=== PATIENT | male | born 1955 | race Two or more races ===

== ENCOUNTER 2025-01-25 14:16 | Emergency (ER) | payer MEDICARE, MEDICAID, SELFPAY ==
[2025-01-25 14:19] VITALS: BMI 26.6
[2025-01-25 14:27] VITALS: BP 159/88; PULSE 68; RESP 17; TEMP 37; O2SAT 97
--- NOTE | 2025-01-25 14:48 | XR_ITS ---
Examination: CT brain head without contrast. 2-D sagittal coronal reconstructions Date and time of exam:January 25, 2025 1529 hours INDICATIONS: Patient fell today with injury of the head, headache CTDI: vol (mGy):9.53 DLP: (mGycm):368 Technique: Multiple CT axial sections of the brain have been obtained, 5 mm slice thickness. Contrast has not been administered. 2-D sagittal, coronal reconstructions have been obtained Low dose protocols were performed. One or more of the following dose reduction techniques were used; automated exposure control, adjustment of the mA and/or KV according to patient size, use of iterative reconstruction technique. Findings: No significant ventricular enlargement. Intra-axial or extra-axial hemorrhage density is not seen. No mass effect or midline shift Basal cisterns are not remarkable. Fourth ventricle is midline. Cranial vault intact. Impression: Negative for acute hemorrhage, mass effect or midline shift
--- NOTE | 2025-01-25 14:56 | PD.EDHA ---
ED Headache RME/HPI General Chief Complaint: Headache Stated Complaint: HEAD PAIN, SWEATING, X2WKS, HX OF STROKE Time Seen by Provider: 01/25/25 14:27 Source: patient Arrival date/time: 01/25/25 14:16 69-year-old male with a history of hypertension, hyperlipidemia, CVA presents to the emergency room with a chief complaint of a headache, neck pain x 10 days Mode of arrival: ambulatory Limitations: no limitations Related Data Home Medications ?Medication ?Instructions ?Recorded ?Confirmed gabapentin 300 mg capsule 300 mg PO TID 04/21/20 05/28/20 apixaban 5 mg tablet (Eliquis) 5 mg PO BID 05/28/20 05/28/20 carvedilol 3.125 mg tablet 3.125 mg PO BID 05/28/20 05/28/20 Previous Rx's ?Medication ?Instructions ?Recorded atorvastatin 40 mg tablet 40 mg PO QDAY #30 tabs 05/29/20 lisinopril 40 mg tablet 20 mg (1/2 x 40 mg) PO QDAY #0 tabs 05/29/20 ondansetron HCl 4 mg tablet 4 mg PO Q8H PRN nausea and 05/29/20 (Zofran) vomiting #20 tabs Allergies Allergy/AdvReac Type Severity Reaction Status Date / Time No Known Allergies Allergy Verified 01/25/25 14:21 Review of Systems Review of Systems Systems Reviewed: All systems reviewed, normal except as documented Constitutional Constitutional: Reports system reviewed and no additional complaints, except as documented, Denies fatigue, Denies fever(s), Reports headache(s), Reports lethargy, Reports night sweats, Reports weakness and Reports weight loss Eyes Eyes: Reports system reviewed and no additional complaints, except as documented, Denies blurry vision and Denies change in vision ENT Ears, Nose, Mouth, and Throat: Reports system reviewed and no additional complaints, except as documented, Denies otalgia, Reports headache(s), Denies nasal congestion, Denies throat swelling and Denies vertigo Cardiovascular Cardiovascular: Reports system reviewed and no additional complaints, except as documented, Denies chest pain, Denies dyspnea and Denies dyspnea on exertion Respiratory Respiratory: Reports system reviewed and no additional complaints, except as documented, Denies chest congestion, Denies cough, Denies dyspnea, Denies dyspnea on exertion and Denies wheezing Gastrointestinal Gastrointestinal: Reports system reviewed and no additional complaints, except as documented, Denies abdominal pain, Denies cramping, Denies nausea and Denies vomiting Genitourinary Genitourinary: Reports system reviewed and no additional complaints, except as documented, Denies dysuria and Denies hematuria Musculoskeletal Musculoskeletal: Reports system reviewed and no additional complaints, except as documented and Denies back pain Integumentary/Breasts Skin/Breast: Reports system reviewed and no additional complaints, except as documented and Denies wounds Neurologic Neurologic: Reports system reviewed and no additional complaints, except as documented, Denies confusion, Reports headache(s), Denies lack of coordination, Denies vertigo and Reports weakness Psychiatric Psychiatric: Reports system reviewed and no additional complaints, except as documented, Denies anxiety, Denies confusion, Denies depression, Denies paranoia, Denies suicidal ideation and Denies tactile hallucinations Endocrine Endocrine: Reports system reviewed and no additional complaints, except as documented and Denies fatigue Hematologic/Lymphatic Hematologic/Lymphatic: Reports system reviewed and no additional complaints, except as documented and Denies lymphadenopathy Allergic/Immunologic Allergic/Immunologic: Reports system reviewed and no additional complaints, except as documented, Denies throat swelling, Denies urticaria and Denies wheezing Past Medical History Past Medical History NEUROLOGIC: Positive Neurological Disorders and Cerebrovascular Accident CARDIAC: Positive Cardiac Disorders, Hypercholesterolemia and Hypertension; Negative Congestive Heart Failure RESPIRATORY: Negative Chronic Obstructive Pulmonary Disease (COPD) or Asthma GASTROINTESTINAL: Negative Gastrointestinal Disorders GENITOURINARY: Negative Genitourinary Disorders or Renal Disease MUSCULOSKELETAL: Negative Musculoskeletal Disorders ENDOCRINE: Negative Diabetes Mellitus Type 1 or Diabetes Mellitus Type 2 HEMATOLOGIC: Negative Blood Disorders or Sickle Cell Disease Social History SMOKING STATUS: Never smoker SECOND HAND EXPOSURE: No SUBSTANCE USE: does not use ED Exam General Limitations: Present no limitations General appearance: Present alert and in no apparent distress Head Head exam: Present atraumatic, normocephalic and normal inspection Expanded Head Exam Head exam physical: Absent laceration, abrasion, contusion, hematoma, raccoon eyes, Tran's sign, tenderness of temporal artery, CSF rhinorrhea or CSF otorrhea Eye Eye exam: Present normal appearance, PERRL and EOMI ENT ENT exam: Present normal exam, normal oropharynx and mucous membranes moist Neck Neck exam: Present normal inspection, full ROM and trachea midline Chest Chest inspection: Present normal inspection and symmetric chest wall rise Respiratory Respiratory exam: Present normal lung sounds bilaterally Cardiovascular Cardiovascular exam: Present regular rate, normal rhythm and normal heart sounds Abdominal Exam Abdominal exam: Present soft and normal bowel sounds Extremities Exam Extremities exam: Present normal inspection and full ROM Back Exam Back exam: Present normal inspection and full ROM Neurological Exam Neurological exam: Present alert, oriented X3, CN II-XII intact, normal gait and reflexes normal Expanded Neurological Exam Patient oriented to: Present person, place and time Speech: Present fluid speech Cranial nerves: Normal: EOM function (II, III, IV, ) and facial sensation (V) Cerebellar function: Present normal gait Motor strength - LUE: 5/5 Motor strength - RUE: 5/5 Motor strength - LLE: 5/5 Motor strength - RLE: 5/5 Coma scale eye opening: spontaneous Coma scale motor response: obeys commands Coma scale verbal response: oriented Coma scale total: 15 Psychiatric Psychiatric exam: Present normal affect and normal mood Skin Skin exam: Present warm, dry, intact and normal color Course Quality Measures none Orders Category Date Time Status CT head/brain wo con Stat Exams 01/25/25 14:48 Completed CBC Stat Lab 01/25/25 15:09 Completed CMP [Comprehensive Metabolic Panel] Stat Lab 01/25/25 15:09 Completed Ketorolac Inj [Toradol Inj] Med 01/25/25 16:53 Discontinued 30 mg IM X1 ONE Vital Signs Vital signs: Vital Signs Temperature 98.6 F 01/25/25 14:27 Pulse Rate 68 01/25/25 14:27 Respiratory Rate 17 01/25/25 14:27 Blood Pressure 159/88 H 01/25/25 14:27 Pulse Oximetry (%) 97 01/25/25 14:27 Oxygen Delivery Method Room Air 01/25/25 14:27 O2 saturation 97% within normal limits Headache MDM Narrative MDM Narrative:: 69-year-old male with a history of hypertension, hyperlipidemia, CVA presents to the emergency room with a chief complaint of a headache, neck pain x 10 days Patient is hemodynamically stable and in no apparent distress Neurological examination was within normal limits. Pupils are PERRLA EOMs are intact the patient is a GCS of 15 he is alert and oriented x 3. There is no focal deficits CT of the head and brain was completed and was negative for any acute findings CBC CMP are within normal limits Patient was discharged and educated to follow-up with primary care provider in the next 24 to 48 hours and return to the emergency room for any evidence of worsening signs or symptoms Patient data External records reviewed:: [facility] previous records Clinical information provided by:: patient Social determinants that could affect healthcare access:: none Patient has the following chronic illnesses:: No chronic illness How is presenting disease/condition affected by chronic disease/condition?: no chronic disease Evaluation data The following diagnostics were reviewed and interpreted by me:: lab results and radiology exam(s) Lab and/or radiology exams considered but not ordered:: Labs and radiology exams considered and ordered [facility] Interpretation Summary: CT head and brain-indings: No significant ventricular enlargement. Intra-axial or extra-axial hemorrhage density is not seen. No mass effect or midline shift Basal cisterns are not remarkable. Fourth ventricle is midline. Cranial vault intact. Impression: Negative for acute hemorrhage, mass effect or midline shift Medications / Prescriptions Medications or Prescriptions considered but not ordered:: Medication given Medication administrations:: Medication Administration History Discontinued Medications Ketorolac Tromethamine (Ketorolac Inj 60 Mg/2 Ml Vial) 30 mg IM X1 ONE Stop: 01/25/25 16:54 Medication given Consultations Consultation(s) initiated? (list below): No Diagnosis Differential diagnosis headache: migraine, tension headache and headache Most likely diagnosis given after review of the tests above:: Headache Admission Indicated Admission indicated?: not indicated Admission Request Was there a request for admission?: No Disposition Plan Disposition Plan: Discharge Discharge Attestation Discharge Attestation: The patient and all family members were given an opportunity to ask questions and understood the discharge instructions. Discharge instructions specifically effects, indications for sooner follow up or return to the emergency department, and the expected course of current diagnosis. Patient condition: Stable Discharge Plan Plan Patient Disposition: HOME (Self Care) Discharge Disposition comment: Stable Prescriptions/Referrals Prescriptions/Med Rec: No Action Eliquis 5 mg tablet 5 mg PO BID Patient Comments: 5 MG PO BID 30 days carvedilol 3.125 mg tablet 3.125 mg PO BID Patient Comments: 3.125 mg PO BID 30 days atorvastatin 40 mg tablet 40 mg PO QDAY Qty: 30 0RF ondansetron HCl [Zofran] 4 mg tablet 4 mg PO Q8H PRN (Reason: nausea and vomiting) Qty: 20 0RF lisinopril 40 mg Tablet 20 mg PO QDAY Qty: 0 0RF gabapentin 300 mg Capsule 300 mg PO TID Referrals: Vy Martinez, [employer] [Primary Care Provider] - In 1 week Problem List Clinical Impression: Headache Patient/Caregiver Discharge Instructions Education Materials: Self-Care for Headaches Additional Instructions: Por favor, consulte con gomez m?dico de cabecera en las pr?ximas 24 a 48 horas. Se realiz? giancarlo tomograf?a computarizada de mino y cerebro y fue negativa para cualquier hallazgo harper. Gomez an?lisis de jung estaba dentro de los l?mites normales. Si hay cualquier evidencia de empeoramiento de los signos o s?ntomas, regrese a la araeclis de emergencias inmediatamente. Print Language: Mosotho Stand Alone Forms: Sharri Award Info., Patient Portal Info Letter PA/[employer] WORK[employer] Supervising Physician PA/[employer] WORK[employer] Supervising Physician: Dr Null
[2025-01-25 15:17] LABS: Basophils % (Auto) 0 % (0-2.5); Eosinophils # (Auto) 0.1 Thou/mm3 (0.0-0.5); Eosinophils % (Auto) 1 % (0-10); Hematocrit 45.6 % (41.0-53.0); Hemoglobin 15.3 g/dL (13.5-16.0); Immature Granulocytes % (Auto) 0 % (0-0); Immature Granulocytes Auto 0.03 Thou/mm3 (0.00-0.00); Lymphocytes # (Auto) 2.1 Thou/mm3 (1.0-4.8); Lymphocytes % (Auto) 24 % (10-50); Mean Corpuscular HGB Conc 33.6 g/dl (31.0-37.0); Mean Corpuscular Hemoglobin 31.4 pg (25.0-35.0); Mean Corpuscular Volume 93 fL (80-100); Monocytes # (Auto) 0.8 Thou/mm3 (0.0-0.8); Monocytes % (Auto) 9 % (0-12); Neutrophils # (Auto) 5.9 Thou/mm3 (1.8-7.7); Neutrophils % (Auto) 66 % (37-80); Nucleated Red Blood Cell % 0 /100 WBC (0); Platelet Count 274 Thou/mm3 (140-440); RDW Standard Deviation 43.3 fL (35.1-43.9); Red Blood Count 4.88 Miln/mm3 (4.50-5.90)
[2025-01-25 15:38] LABS: Alanine Aminotransferase 21 U/L (10-49); Albumin, Serum 4.4 gm/dL (3.4-4.8); Albumin/Globulin Ratio 1.9 (1.2-2.2); Alkaline Phosphatase 66 U/L (46-116); Anion Gap 13 (7-16); Aspartate Amino Transferase 17 U/L (0-34); BUN/Creatinine Ratio 14 Ratio (12-20); Bilirubin,Total 0.8 mg/dL (0.3-1.2); Blood Urea Nitrogen 17 mg/dL (9-23); Calcium 8.9 mg/dL (8.3-10.6); Calcium (Corrected) 8.9 mg/dL (8.5-10.1); Carbon Dioxide 23.5 mMol/L (20.0-31.0); Chloride 107 mMol/L (98-107); Creatinine (Component) 1.2 mg/dL (0.6-1.3); Estimated Creatinine Clearance 53.2 mL/min (>60); Globulin 2.3 gm/dL (2.3-3.5); Glucose 93 mg/dL (74-106); Osmolality,Calculated 286 (275-295); Potassium 4.7 mMol/L (3.4-5.1); Sodium 143 mMol/L (136-145); Total Protein 6.7 gm/dL (5.7-8.2); eGFR > 60 See Note
[2025-01-25 17:16] VITALS: BP 128/82; PULSE 78
== END 2025-01-25 17:18 | disposition home or self-care (01) ==
PROVIDERS: Nurse Practitioner Family; Emergency Provider Emergency Medicine; PCP Nurse Practitioner Family
DX: R51.9 Headache, unspecified (principal); E78.5 Hyperlipidemia, unspecified; I10 Essential (primary) hypertension
CPT/HCPCS: 36415; 70450; 80053; 85025; 99284

== ENCOUNTER 2025-06-14 00:07 | Emergency (ER) | payer MEDICARE, MEDICAID, SELFPAY ==
[2025-06-14] VITALS (7 sets, daily range): BP systolic 102–146; BP diastolic 59–82; PULSE 50–100; RESP 17–18; TEMP 36.6–37.1; O2SAT 95–99; BMI 25.5
--- NOTE | 2025-06-14 01:17 | PD.EDRME ---
Rapid Medical Screening Exam [facility], [facility] Arrival date/time: 06/14/25 00:07 69M with history of HTN, DM, and CVA presents to ED with LLQ pain, possibly bloody N/V, and diarrhea. Possible dysuria. Chief Complaint: Nausea/Vomiting/Diarrhea Vital signs: Vital Signs Temperature 98.2 F 06/14/25 01:02 Pulse Rate 73 06/14/25 01:02 Respiratory Rate 18 06/14/25 01:02 Blood Pressure 114/74 06/14/25 01:02 Pulse Oximetry (%) 95 06/14/25 01:02 Oxygen Delivery Method Room Air 06/14/25 01:02
[2025-06-14 01:35] LABS: Basophils # (Auto) 0.1 Thou/mm3 (0.0-0.2); Basophils % (Auto) 0 % (0-2.5); Eosinophils # (Auto) 0.1 Thou/mm3 (0.0-0.5); Eosinophils % (Auto) 1 % (0-10); Hematocrit 46.6 % (41.0-53.0); Hemoglobin 15.2 g/dL (13.5-16.0); Immature Granulocytes Auto 0.09 Thou/mm3 (0.00-0.00); Lymphocytes # (Auto) 0.7 Thou/mm3 (1.0-4.8); Lymphocytes % (Auto) 4 % (10-50); Mean Corpuscular HGB Conc 32.6 g/dl (31.0-37.0); Mean Corpuscular Hemoglobin 30.6 pg (25.0-35.0); Mean Corpuscular Volume 94 fL (80-100); Monocytes # (Auto) 1.5 Thou/mm3 (0.0-0.8); Monocytes % (Auto) 8 % (0-12); Neutrophils # (Auto) 17.8 Thou/mm3 (1.8-7.7); Neutrophils % (Auto) 88 % (37-80); Nucleated Red Blood Cell # 0.00 Thou/mm3 (0.00-0.00); Nucleated Red Blood Cell % 0 /100 WBC (0); Platelet Count 293 Thou/mm3 (140-440); RDW Standard Deviation 43.4 fL (35.1-43.9); Red Blood Count 4.96 Miln/mm3 (4.50-5.90); White Blood Count 20.3 Thou/mm3 (3.8-10.6)
[2025-06-14 01:45] LABS: Collection Type, Urine Clean Catch; Squamous Epithelial Cell,Urine 0 /hpf (0-5)
--- NOTE | 2025-06-14 01:49 | XR_ITS ---
Examination: CT abdomen with intravenous contrast CT pelvis with intravenous contrast 2-D coronal reconstructions 2-D sagittal reconstructions Date and time of exam: June 14, 2025, 0349 hours INDICATIONS: Nausea vomiting diarrhea abdominal pain onset today. CTDI: vol (mGy) 7.07 DLP: (mGycm) 412 Technique: Multiple axial sections of the abdomen and pelvis have been obtained. 64 slice high-resolution scanner used. 3 mm axial sections have been obtained, post intravenous injection 60 cc [id number] 2-D sagittal, coronal reconstructions obtained. Low dose protocols were performed. One or more of the following dose reduction techniques were used; automated exposure control, adjustment of the mA and/or KV according to patient size, use of iterative reconstruction technique. Findings: No focal liver or splenic lesion No gallstones No pancreatic or adrenal mass 9 cm right renal cyst Aortic calcification no aneurysmal dilatation Mildly fluid distended colon and small bowel No diverticulitis Normal appendix is Normal seminal vesicles Prostatomegaly transverse dimension 5 cm Contracted urinary bladder Fat-containing right inguinal hernia No bowel obstruction IMPRESSION: Mild colitis enteritis pattern Normal appendix No obstruction
[2025-06-14 01:50] LABS: Alanine Aminotransferase 27 U/L (10-49); Albumin, Serum 5.0 gm/dL (3.4-4.8); Anion Gap 12 (7-16); Aspartate Amino Transferase 18 U/L (0-34); BUN/Creatinine Ratio 17 Ratio (12-20); Bilirubin,Total 0.4 mg/dL (0.3-1.2); Blood Urea Nitrogen 17 mg/dL (9-23); Calcium 9.3 mg/dL (8.3-10.6); Carbon Dioxide 23.6 mMol/L (20.0-31.0); Chloride 108 mMol/L (98-107); Creatinine (Component) 1.0 mg/dL (0.6-1.3); Estimated Creatinine Clearance 68.4 mL/min (>60); Glucose 145 mg/dL (74-106); Osmolality,Calculated 291 (275-295); Potassium 4.2 mMol/L (3.4-5.1); Sodium 144 mMol/L (136-145); Total Protein 7.0 gm/dL (5.7-8.2); eGFR > 60 See Note
[2025-06-14 01:51] LABS: Albumin/Globulin Ratio 2.5 (1.2-2.2); Alkaline Phosphatase 61 U/L (46-116); Calcium (Corrected) 9.3 mg/dL (8.5-10.1); Globulin 2.0 gm/dL (2.3-3.5); Lipase 49 U/L (12-53)
[2025-06-14 01:57] LABS: Bilirubin,Urine Negative (Negative); Blood,Urine Negative (Negative); Clarity,Urine Clear (Clear/Hazy); Color,Urine Yellow (Lt Yel-Yel); Culture Indicated,Urine Not Indicated; Glucose, Urine 4+ (Negative); Ketones,Urine Trace (Negative); Leukocyte Esterase,Urine Negative (Negative); Nitrite,Urine Negative (Negative); PH,Urine 5.5 (5.0-7.0); Protein,Urine 1+ (Neg - Trace); RBC,Urine 3 /hpf (0-3); Specific Gravity,Urine 1.047 (1.001-1.035); Urobilinogen,Urine 2.0 mg/dL (0.0-1.0); WBC,Urine 1 /hpf (0-5)
[2025-06-14] MEDS: ONDANSETRON INJ 2 MG/ML INJ 2 ML 4 MG IVP (03:11)
--- NOTE | 2025-06-14 04:38 | PRELIM_ITS ---
CT scan of the abdomen and pelvis with intravenous contrast (axial sections with sagittal and coronal reformats) June 14, 2025 0349 hours Clinical History: Ab pain, N/V, diarrhea No prior study is available for comparison. Findings: The lung bases are clear. There is a right renal cyst, measuring 9 x 6 cm.The liver, gallbladder, pancreas, spleen, left kidney and adrenals are unremarkable. No evidence of bowel obstruction. Fluid-filled small and large bowel loops with air-fluid levels in the colon. The appendix is within normal limits (coronal images [id number]). There is no mesenteric or retroperitoneal adenopathy. The urinary bladder is incompletely distended at the time of the examination. There is no free fluid or free air. The osseous structures are unremarkable. Impression: Fluid-filled small and large bowel loops with air-fluid levels in the colon, which may be nonspecific or related to diarrhea. However, the possibility of mild enterocolitis cannot be excluded. Other findings as described above. Report Electronically Signed By: Vincent Ramirez 06/14/2025 4:38:04 AM [EST]
[2025-06-14] MEDS: SODIUM CHLORIDE 0.9% 1000 ML 1,000 ML 999 ML IV (06:52)
--- NOTE | 2025-06-14 11:20 | PD.EDABDPN ---
ED Abdominal Pain RME/HPI General Chief Complaint: Nausea/Vomiting/Diarrhea Stated complaint: NVD Time seen by provider: 06/14/25 06:14 Arrival date/time: 06/14/25 00:07 Limitations: no limitations RME / HPI RME / HPI narrative: 06/14/25 00:07 69M with history of HTN, DM, and CVA presents to ED with LLQ pain, possibly bloody N/V, and diarrhea. Possible dysuria. DR. SILVA MAIN ED EVALUATION: 69 year old male with history of hypertension, diabetes presents to the ED for evaluation of abdominal pain beginning at 10pm last and remaining constant since. Described as aching in sensation that is located diffusely though most severe to the left lower abdomen, rating 8/10 in severity. Accompanied by nausea, nonbloody vomiting, and diarrhea. Denies taking any medication at home. Denies fevers, chills, sweats, or urinary symptoms. Related Data Home Medications ?Medication ?Instructions ?Recorded ?Confirmed gabapentin 300 mg capsule 300 mg PO TID 04/21/20 05/28/20 apixaban 5 mg tablet (Eliquis) 5 mg PO BID 05/28/20 05/28/20 carvedilol 3.125 mg tablet 3.125 mg PO BID 05/28/20 05/28/20 Previous Rx's ?Medication ?Instructions ?Recorded atorvastatin 40 mg tablet 40 mg PO QDAY #30 tabs 05/29/20 lisinopril 40 mg tablet 20 mg (1/2 x 40 mg) PO QDAY #0 tabs 05/29/20 ondansetron HCl 4 mg tablet 4 mg PO Q8H PRN nausea and 05/29/20 (Zofran) vomiting #20 tabs ciprofloxacin HCl 500 mg tablet 500 mg PO BID 10 days #20 tabs 06/14/25 ciprofloxacin HCl 500 mg tablet 500 mg PO BID 10 days #20 tabs 06/14/25 ciprofloxacin HCl 500 mg tablet 500 mg PO BID #20 tabs 06/14/25 (Cipro) ondansetron 4 mg disintegrating 4 mg PO Q8H PRN nausea and 06/14/25 tablet vomiting #10 tabs ondansetron HCl 4 mg tablet 4 mg PO Q8H 5 days #15 tabs 06/14/25 Allergies Allergy/AdvReac Type Severity Reaction Status Date / Time No Known Allergies Allergy Verified 06/14/25 00:13 Review of Systems Review of Systems Systems Reviewed: All systems reviewed, normal except as documented Past Medical History Past Medical History NEUROLOGIC: Positive Neurological Disorders and Cerebrovascular Accident (2019) CARDIAC: Positive Cardiac Disorders, Hypercholesterolemia and Hypertension ENDOCRINE: Positive Endocrine Disorders and Diabetes Mellitus Type 2 Social History SMOKING STATUS: Never smoker SECOND HAND EXPOSURE: No SUBSTANCE USE: does not use ED Exam General Limitations: Present no limitations General appearance: Present alert and in no apparent distress Head Head exam: Present atraumatic, normocephalic and normal inspection Eye Eye exam: Present normal appearance, PERRL and EOMI ENT ENT exam: Present normal exam, normal oropharynx and mucous membranes moist Neck Neck exam: Present normal inspection, full ROM and trachea midline Chest Chest inspection: Present normal inspection and symmetric chest wall rise Respiratory Respiratory exam: Present normal lung sounds bilaterally Cardiovascular Cardiovascular exam: Present regular rate, normal rhythm and normal heart sounds Abdominal Exam Abdominal exam: Present soft, tenderness (diffuse and mild ) and normal bowel sounds; Absent distention, guarding, rebound or rigidity Extremities Exam Extremities exam: Present normal inspection and full ROM Back Exam Back exam: Present normal inspection and full ROM Neurological Exam Neurological exam: Present alert, oriented X3 and CN II-XII intact Psychiatric Psychiatric exam: Present normal affect and normal mood Skin Skin exam: Present warm, dry, intact and normal color Course Quality Measures none Orders Category Date Time Status CT Screening NOW Care 06/14/25 01:49 Completed Loan Review Officer NOW Care 06/14/25 06:46 Completed Continuous Pulse Oximetry NOW Care 06/14/25 06:46 Completed Insert IV NOW Care 06/14/25 01:49 Completed Insert IV NOW Care 06/14/25 06:[address] abdomen pelvis w con Stat Exams 06/14/25 01:49 Completed CBC Stat Lab 06/14/25 01:18 Completed CMP [Comprehensive Metabolic Panel] Stat Lab 06/14/25 01:18 Completed Lipase Stat Lab 06/14/25 01:18 Completed Urinalysis, C/S if Indicated Stat Lab 06/14/25 01:15 Completed Ondansetron Inj [Zofran Inj] Med 06/14/25 01:55 Discontinued 4 mg IVP X1 ONE Ondansetron Odt [Zofran Odt] Med 06/14/25 01:16 Discontinued 4 mg PO X1 ONE Sodium Chloride 0.9% 1000 ml [Ns] 1,000 ml Med 06/14/25 06:46 Discontinued IV 999 mls/hr Vital Signs Vital signs: Vital Signs Temperature 98.2 F 06/14/25 01:02 Pulse Rate 73 06/14/25 01:02 Respiratory Rate 18 06/14/25 01:02 Blood Pressure 114/74 06/14/25 01:02 Pulse Oximetry (%) 95 06/14/25 01:02 Oxygen Delivery Method Room Air 06/14/25 01:02 Pulse ox is 95% on room air which is adequate. Abdominal Pain MDM Patient data External records reviewed:: [facility] previous records Clinical information provided by:: patient Social determinants that could affect healthcare access:: none Patient has the following chronic illnesses:: Hypertension, diabetes How is presenting disease/condition affected by chronic disease/condition?: uneffected by Evaluation data The following diagnostics were reviewed and interpreted by me:: lab results and radiology exam(s) Lab and/or radiology exams considered but not ordered:: None Interpretation Summary: Ordering Physician: Luca Gomez PA-C Date of Service: 06/14/25 Procedure(s): CT abdomen pelvis w con Accession Number(s): [id number] cc: Vy Martinez; Suleiman Tinsley MD; Luca Gomez PA-C~ Examination: CT abdomen with intravenous contrast CT pelvis with intravenous contrast 2-D coronal reconstructions 2-D sagittal reconstructions Date and time of exam: June 14, 2025, 0349 hours INDICATIONS: Nausea vomiting diarrhea abdominal pain onset today. CTDI: vol (mGy) 7.07 DLP: (mGycm) 412 Technique: Multiple axial sections of the abdomen and pelvis have been obtained. 64 slice high-resolution scanner used. 3 mm axial sections have been obtained, post intravenous injection 60 cc [id number] 2-D sagittal, coronal reconstructions obtained. Low dose protocols were performed. One or more of the following dose reduction techniques were used; automated exposure control, adjustment of the mA and/or KV according to patient size, use of iterative reconstruction technique. Findings: No focal liver or splenic lesion No gallstones No pancreatic or adrenal mass 9 cm right renal cyst Aortic calcification no aneurysmal dilatation Mildly fluid distended colon and small bowel No diverticulitis Normal appendix is Normal seminal vesicles Prostatomegaly transverse dimension 5 cm Contracted urinary bladder Fat-containing right inguinal hernia No bowel obstruction IMPRESSION: Mild colitis enteritis pattern Normal appendix No obstruction Dictated By: Suleiman Tinsley MD Signed By: <Electronically signed by Suleiman Tinsley MD in OV> 06/14/25 0744 Medications / Prescriptions Medications or Prescriptions considered but not ordered:: None Medication administrations:: Medication Administration History Discontinued Medications Sodium Chloride (Ns) 1,000 mls @ 999 mls/hr IV .Q1H1M ONE Stop: 06/14/25 07:46 Last Infusion: 06/14/25 08:03 Dose: Infused Documented By: Admin: 06/14/25 06:52 Dose: 999 mls/hr Documented By: GABRIELA Ondansetron HCl (Ondansetron Odt 4 Mg Tabrap) 4 mg PO X1 ONE; Protocol Stop: 06/14/25 01:17 Last Admin: 06/14/25 05:42 Dose: Not Given Documented By: GABRIELA Non-Admin Reason: Cancelled by Provider Ondansetron HCl (Ondansetron Inj 2 Mg/Ml Inj 2 Ml) 4 mg IVP X1 ONE; Protocol Stop: 06/14/25 01:56 Last Admin: 06/14/25 03:11 Dose: 4 mg Documented By: WINDY None Consultations Consultation(s) initiated? (list below): No Diagnosis Differential diagnosis abdominal pain: abdominal pain, calculus of kidney, constipation, diverticulitis and gastroenteritis Most likely diagnosis given after review of the tests above:: Colitis Abdominal pain Admission Indicated Admission indicated?: not indicated Admission Request Was there a request for admission?: No Disposition Plan Disposition Plan: Discharge Discharge Attestation Discharge Attestation: The patient and all family members were given an opportunity to ask questions and understood the discharge instructions. Discharge instructions specifically effects, indications for sooner follow up or return to the emergency department, and the expected course of current diagnosis. Patient condition: Stable Discharge Plan Plan Patient Disposition: HOME (Self Care) Patient condition on transfer: Stable Prescriptions/Referrals Prescriptions/Med Rec: New ciprofloxacin HCl [Cipro] 500 mg tablet 500 mg PO BID Qty: 20 0RF ondansetron HCl 4 mg tablet 4 mg PO Q8H 5 Days Qty: 15 0RF ciprofloxacin HCl 500 mg tablet 500 mg PO BID 10 Days Qty: 20 0RF ondansetron 4 mg tablet,disintegrating 4 mg PO Q8H PRN (Reason: nausea and vomiting) Qty: 10 0RF ciprofloxacin HCl 500 mg tablet 500 mg PO BID 10 Days Qty: 20 0RF No Action Eliquis 5 mg tablet 5 mg PO BID Patient Comments: 5 MG PO BID 30 days carvedilol 3.125 mg tablet 3.125 mg PO BID Patient Comments: 3.125 mg PO BID 30 days atorvastatin 40 mg tablet 40 mg PO QDAY Qty: 30 0RF ondansetron HCl [Zofran] 4 mg tablet 4 mg PO Q8H PRN (Reason: nausea and vomiting) Qty: 20 0RF lisinopril 40 mg Tablet 20 mg PO QDAY Qty: 0 0RF gabapentin 300 mg Capsule 300 mg PO TID Referrals: Vy Martinez FNP-C [Primary Care Provider] - In 1 week Problem List Clinical Impression: Colitis, Abdominal pain Patient/Caregiver Discharge Instructions Discharge Activity: activity as tolerated Education Materials: Abdominal Pain, How the Colon Works, Understanding Colitis Additional Instructions: Follow-up with your primary care doctor next week. Consider an evaluation by a gastroenterology MD. Take your medications as prescribed. If you have any increased pain or concerns return to the emergency department Print Language: Swedish Stand Alone Forms: Sharri Award Info., Patient Portal Info Letter
== END 2025-06-14 11:00 | disposition home or self-care (01) ==
PROVIDERS: Physician Assistant; Emergency Provider Family Medicine; PCP Nurse Practitioner Family
DX: K52.9 Noninfective gastroenteritis and colitis, unspecified (principal); E11.9 Type 2 diabetes mellitus without complications; I10 Essential (primary) hypertension; Z79.01 Long term (current) use of anticoagulants; Z86.73 Personal history of transient ischemic attack (TIA), and cerebral infarction without residual deficits
CPT/HCPCS: 36415; 74177; 80053; 81001; 83690; 85025; 96361; 96374; 99283; A4649; J2405; J7030; Q9967